=== PATIENT | female | born 1990 | race Caucasian/White ===

== ENCOUNTER 2020-06-20 18:03 | Inpatient (IN) | payer SELFPAY ==
[~2020-06-20 18:03] MED LIST: FLU VACC QS2020-21(6MOS UP)/PF 60 MCG/0.5 ML SYRINGE IM ONE; Iopamidol-370 76% 500 ML 1 ML ONE
[2020-06-20] MEDS ORDERED: Ketorolac Tromethamine 30 MG/ML VIAL ONE (18:29)
[2020-06-20] MEDS ORDERED: Morphine 4 MG/ML VIAL ONE ×2 (18:29→21:49)
[2020-06-20] MEDS ORDERED: Haloperidol Lactate 5 MG/ML VIAL ONE (18:29)
[2020-06-20] MEDS ORDERED: diphenhydrAMINE 50 MG/ML VIAL ONE (18:29)
[2020-06-20 18:50] LABS: #Eosinphils 0.1 thou/uL (0.0-0.7); #Lymphocytes 2.7 thou/uL (1.20-3.40); #Monocytes 0.5 thou/uL (0.11-0.59); #Neutrophils 5.9 thou/uL (1.40-6.50); %Basophils 0.5 % (0.0-1.0); %Eosinophils 0.8 % (0.0-10.0); %Lymphocytes 29.2 % (21.0-51.0); %Monocytes 5.3 % (0.0-10.0); %Neutrophils 64.1 % (42.0-75.0); Hemoglobin 14.1 g/dL (12.0-16.0); Mean Corpuscular HGB CONC 33.4 g/dL (32.0-36.0); Mean Corpuscular Hemoglobin 31.4 pg (27.0-31.0); Mean Platelet Volume 7.5 fL (7.4-10.4); Platelet Count 282 thou/uL (130-400); RBC Distribution Width 11.8 % (11.5-14.5); Red Blood Cell (RBC) Count 4.51 mill/uL (4.20-5.40); White Blood Cell (WBC) Count 9.2 thou/uL (4.8-10.8)
[2020-06-20 18:53] LABS: BHCG - Serum Negative (NEGATIVE); Pregs Control Background? CLEAR/WHITE (CLR/WHITE); Pregs Control Bar Appear? YES (CONTROL BAR)
[2020-06-20 19:15] LABS: ALT (SGPT) 11 U/L (8-55); AST (SGOT) 27 U/L (5-34); Albumin 3.6 g/dL (3.5-5.0); Alkaline Phosphatase 67 U/L (40-110); Anion Gap 16 mmol/L (10-20); BUN (Urea Nitrogen) 7 mg/dL (7.0-18.7); Bilirubin, Total 0.7 mg/dL (0.2-1.2); Calc. Creatinine Clearance 0 mL/min (70-130); Carbon Dioxide 24 mmol/L (22-29); Chloride 102 mmol/L (98-107); Globulin 3.7 g/dL (2.4-3.5); Glucose 139 mg/dL (70-105); Lipase 19 U/L (8-78); Magnesium 1.6 mg/dL (1.6-2.6); Protein, Total 7.3 g/dL (6.0-8.3); Sodium 137 mmol/L (136-145)
[2020-06-20 19:31] LABS: Bilirubin Negative (Negative); Blood, Urine Trace (Negative); Clarity Clear (Clear); Glucose, Urine (Dipstick) Normal (Negative); Ketone, Urine Negative (Negative); Leukocyte Negative Leu/uL (Negative); Nitrite 1+ (Negative); Protein, Urine (Dipstick) Negative (Neg-Trace); RBC/HPF 0-3 HPF (0-3); Specific Gravity, Urine 1.019 (1.002-1.036); Urobilinogen Normal mg/dL (Less than 2); WBC/HPF 0-3 HPF (0-3); pH, Urine 6.5 (5.0-9.0)
[2020-06-20 19:32] LABS: Bacteria/HPF 1+ HPF (None Seen); Pregnancy Test - Urine (BHCG) Negative (Negative); Pregu Control Background? CLEAR/WHITE (CLR/WHITE); Pregu Control Bar Appear? YES (CONTROL BAR); Specific Gravity 1.019 (1.002-1.036)
--- NOTE | 2020-06-20 19:36 | CT ---
CT ABDOMEN AND PELVIS WITH IV CONTRAST 06/20/2020 CLINICAL INFORMATION: Acute abdominal pain. Pain radiates to right lower quadrant. Nausea and vomiting. COMPARISON: None. Technique: Multiple contiguous axial CT images are obtained through the abdomen and pelvis with IV contrast. Cor onal reformatted images are provided. FINDINGS: Lower Chest: Minimal dependent bibasilar atelectasis is present. Vessels: Abdominal aorta is normal in caliber. Abdomen: Portal vein:Mildly prominent in diameter but patent. Gallbladder: Within normal limits for CT imaging. Liver: within normal limits. Spleen: within normal limits. Pancreas: within normal limits. Adrenals: within normal limits. Kidneys: within normal limits. Bowel: There is prominent gaseous distention of the majority of the colon with a moderate amount garret ined fecal material seen in the region of the ascending colon and involving the cecum. There is a focal area of swirling and narrowing involving the sigmoid colon in the left hemipelvis. Within the a amxine of narrowing, there are vessels extending through this region. Findings could potentially represent internal hernia in this location with subsequent narrowing, but a volvulus or incomplete vo lvulus of the sigmoid colon is a possibility. There is gas seen distal to this region. Loops of small bowel are normal in caliber. Appendix: The appendix is visualized and normal in caliber. Peritoneum: Minimal amount of free fluid is seen in the lower posterior pelvis. Mesentery and Retroperitoneum: No enlarged mesenteric or retroperitoneal lymph nodes. Abdominal Wall: Small infraumbilical fat-containing hernia. Pelvis: Reproductive Organs: Low density area in the right adnexa likely due to small cyst or dominant follic le in the right ovary. Bladder: Incompletely distended but otherwise normal in appearance. Bones: No suspicious lytic or sclerotic osseous lesions are identified. IMPRESSION: 1. Moderate amount retained fecal material in the region of the cecum and ascending colon with gaseou s distention of the majority of the colon. There is focal short segment of narrowing with a swirling type appearance involving the sigmoid colon. This may potentially represent on internal yaa ia, but possibility of a volvulus or incomplete volvulus of the sigmoid colon is a possibility. The cecum measures approximately 9.1 cm in transverse dimensions. 2. No CT evidence of appendicitis. 3. Above findings discussed Dr. Lombardi in the emergency department on 06/20/2020 at 1933 hours
[2020-06-20] MEDS ORDERED: Piperacillin/Tazobactam 3.375 GM VIAL ONE (20:34)
[2020-06-20] MEDS ORDERED: Dextrose 50% Abboject 50 ML SYRINGE SLOW IVP PRN (22:52)
[2020-06-20] MEDS ORDERED: hydrALAZINE 20 MG/ML VIAL SLOW IVP PRN (22:52)
[2020-06-20] MEDS ORDERED: Ketorolac Tromethamine 30 MG/ML VIAL IVP PRN (22:52)
[2020-06-20] MEDS ORDERED: Dextrose 5% in Water 1,000 ML IV PRN (22:52)
[2020-06-20 22:54] VITALS: BMI 30.1
[2020-06-20] MEDS ORDERED: Famotidine/PF 20 mg/2ml Vial SLOW IVP SCH (23:15)
[2020-06-21] MEDS: D5 1/2 NS w/20 mEq KCL 1,000 ML IV SCH ×3 (00:10→17:50)
[2020-06-21] MEDS: Promethazine HCl 25 MG/ML VIAL IM PRN (00:24)
[2020-06-21] MEDS: Morphine 2 MG/ML VIAL SLOW IVP PRN ×3 (00:29→21:16)
[2020-06-21] MEDS: Piperacillin/Tazobactam 3.375 GM in Sodium Chloride 0.9% 100 ML IVPB SCH ×4 (03:18→21:15)
[2020-06-21 04:28] LABS: SARS-CoV-2 MS2 Positive; SARS-CoV-2 N Gene Negative; SARS-CoV-2 S Gene Negative; SARS-CoV-2 by NAA Not Detected (NotDetected); SARS-CoV-2 orf1ab Negative
[2020-06-21 05:55] LABS: #Basophils 0.1 thou/uL (0.0-0.2); #Eosinphils 0.1 thou/uL (0.0-0.7); #Lymphocytes 3.2 thou/uL (1.20-3.40); #Monocytes 0.6 thou/uL (0.11-0.59); #Neutrophils 4.7 thou/uL (1.40-6.50); %Basophils 0.8 % (0.0-1.0); %Eosinophils 1.6 % (0.0-10.0); %Lymphocytes 37.2 % (21.0-51.0); %Monocytes 6.5 % (0.0-10.0); Hemoglobin 13.8 g/dL (12.0-16.0); Mean Corpuscular HGB CONC 33.2 g/dL (32.0-36.0); Mean Corpuscular Hemoglobin 31.1 pg (27.0-31.0); Mean Corpuscular Volume 93.9 fL (78.0-98.0); Mean Platelet Volume 7.3 fL (7.4-10.4); Platelet Count 276 thou/uL (130-400); Red Blood Cell (RBC) Count 4.43 mill/uL (4.20-5.40); White Blood Cell (WBC) Count 8.7 thou/uL (4.8-10.8)
[2020-06-21 06:16] LABS: Anion Gap 13 mmol/L (10-20); BUN (Urea Nitrogen) 8 mg/dL (7.0-18.7); Calc. Creatinine Clearance 158 mL/min (70-130); Calcium 8.3 mg/dL (7.8-10.44); Carbon Dioxide 25 mmol/L (22-29); Chloride 105 mmol/L (98-107); Glucose 97 mg/dL (70-105); Sodium 139 mmol/L (136-145)
[2020-06-21] MEDS ORDERED: FLU VACC QS2020-21(6MOS UP)/PF 60 MCG/0.5 ML SYRINGE IM ONE (09:00)
--- NOTE | 2020-06-21 09:04 | HP ---
CHIEF COMPLAINT: Abdominal bloating and pain. HISTORY OF PRESENT ILLNESS: This is a 29-year-old female who presents with a 2-day history of abdominal bloating associated with nausea, vomiting. The nausea and vomiting resolved. She was complaining of pain mostly in the lower abdomen that was crampy, seen in the emergency department where CAT scan reveals evidence of a twist in her sigmoid colon. This was thought to be either an internal hernia or may be a partial sigmoid volvulus. There was not complete twisting and "kinking" of the mesenteric vessels. She has not vomited overnight and has no nausea. She has mild pain. She has had previous tubal ligation. No other abdominal surgery. PAST MEDICAL HISTORY: She denies. SURGICAL HISTORY: Tubal ligation. MEDICATIONS: Taken daily, none. ALLERGIES: ZOFRAN. SOCIAL HISTORY: She smokes no alcohol. No other drugs. Ten-system review of systems is otherwise negative other than described above. PHYSICAL EXAMINATION: VITAL SIGNS: Blood pressure is 139/91, pulse 69, respirations 18, she is afebrile. HEENT: Sclerae anicteric, oropharynx clear. NECK: No lymphadenopathy. CHEST: Clear. HEART: Regular rate. ABDOMEN: Soft. It is distended diffusely, mildly tender without guarding or rebound. LABORATORY DATA: White blood cell count is 8.7, hemoglobin 13. Sodium 139, potassium 4.0, creatinine 0.67. COVID negative. CT scan shows evidence of obstruction at the rectosigmoid junction. ASSESSMENT: Strange, questionable obstruction in the sigmoid colon, could be a volvulus. PLAN: We will discuss with Dr. Peguero today whether he wants to do flexible sigmoidoscopy to further evaluate this area. Otherwise, she would be to the operating room; however, ideally, if this is a volvulus, she could be untwisted, prepped, and then undergo elective sigmoid resection. Job ID: [id number]
[2020-06-21] MEDS: Famotidine/PF 20 mg/2ml Vial SLOW IVP SCH ×2 (09:27→21:16)
[2020-06-21] MEDS: Famotidine 20 MG TAB PO SCH ×2 (09:28→21:15)
[2020-06-21] MEDS ORDERED: GoLYTELY 4,000 ml Bottle PO SCH (12:30)
[2020-06-21] MEDS: Morphine 4 MG/ML VIAL SLOW IVP PRN ×2 (12:50→17:50)
--- NOTE | 2020-06-21 13:29 | CON ---
DATE OF CONSULTATION: 06/21/2020 CHIEF COMPLAINT: Abdominal pain. HISTORY OF PRESENT ILLNESS: Ms. Ritchie is a 29-year-old woman, who started with left lower quadrant cramping abdominal pain 3 days ago. The pain has been constant and she did have an episode of nausea and vomiting originally, but that resolved. She last had a bowel movement 5 days ago. She has passed some gas from the rectum. She ate solid food last night around 6 p.m. However, the pain worsened and she came onto the emergency room last night. She has had no diarrhea or blood in the stool. Weight has been stable. No further vomiting since admission. She had a CT scan of the abdomen and pelvis last night, which showed a swirling or twisting of the sigmoid colon, concerning for possible volvulus or internal hernia. She has dilation of the colon with stool and air proximal to that. She is admitted to the General Surgery Service and GI was consulted. PAST MEDICAL HISTORY: Otherwise negative. PAST SURGICAL HISTORY: Tubal ligation. FAMILY HISTORY: Positive for stomach cancer in her grandmother. SOCIAL HISTORY: Last methamphetamine use was one week ago. She smokes cigarettes. No alcohol. ALLERGIES: ZOFRAN. CURRENT MEDICATIONS: None. REVIEW OF SYSTEMS: Negative x10 systems reviewed except as stated in the history of present illness. PHYSICAL EXAMINATION: VITAL SIGNS: Temperature 98.0, pulse 69, blood pressure 139/91. GENERAL: She is in no acute distress. Alert and oriented x3. HEENT: Eyes have no scleral icterus. Oropharynx is clear without lesions. No cervical or supraclavicular lymphadenopathy. LUNGS: Clear to auscultation bilaterally. HEART: Regular rate and rhythm without murmur. ABDOMEN: Soft. Mild tenderness in the left lower quadrant without guarding. Bowel sounds are present. EXTREMITIES: No lower extremity edema. NEUROLOGIC: Cranial nerves are grossly intact. LABORATORY DATA: White blood cell count 8.7, hemoglobin 13.8, and platelets 276. Creatinine 0.67, bilirubin 0.7, AST 27, ALT 11, alkaline phosphatase 67, albumin 3.6. IMPRESSION: Sigmoid volvulus versus less likely an internal hernia. Either way, this will likely require surgical repair. If surgery is required without a bowel prep, then she will require a colostomy. We will attempt to untwist a volvulus with flexible sigmoidoscopy first and if this is successful, then she could potentially take a bowel prep, then proceed with surgery after the bowel prep. If the endoscopy is unsuccessful to straighten her colon, then surgery will likely be necessary unprepped. RECOMMENDATIONS: Flexible sigmoidoscopy/colonoscopy today. Job ID: [id number]
--- NOTE | 2020-06-21 18:12 | OP ---
DATE OF PROCEDURE: 06/21/2020 PROCEDURE PERFORMED: Colonoscopy with snare polypectomy. PREOPERATIVE DIAGNOSIS: Sigmoid volvulus. DESCRIPTION OF PROCEDURE: Informed consent was obtained from the patient. She was sedated with total intravenous anesthesia. The exam was performed unprepped. The colonoscope was advanced to the distal ascending colon without difficulty. There was solid stool in the colon. The stool obscured views proximal to that point. Stool also obscured areas of the colon distal to that point. There was a slight twist at the rectosigmoid junction, but there was no mucosal ischemia or ulceration or inflammation in this area. There was not a significant abrupt caliber change in the bowel diameter. I removed an 8 mm sessile polyp from the sigmoid colon by snare cautery polypectomy. Retroflexed views in the rectum were unremarkable. The mucosa otherwise in the colon appeared normal. Again, significant areas of the colon were not seen due to bowel prep and the scope could only be advanced to the distal ascending versus proximal transverse due to solid stool in the colon, which was unprepped. RECOMMENDATIONS: 1. We will follow through with bowel prep later today. 2. Await histopathology. 3. Repeat colonoscopy will be required in the future if the polyp is confirmed to be adenomatous or villous or serrated. 4. Given that there is not an obvious acute volvulus or internal hernia, decision regarding surgery will be based on her clinical course. We will see how she tolerates the bowel prep. Job ID: [id number]
[2020-06-22] MEDS: Piperacillin/Tazobactam 3.375 GM in Sodium Chloride 0.9% 100 ML IVPB SCH ×2 (02:38→07:40)
[2020-06-22] MEDS: Morphine 2 MG/ML VIAL SLOW IVP PRN ×5 (02:52→18:51)
[2020-06-22] MEDS: D5 1/2 NS w/20 mEq KCL 1,000 ML IV SCH ×2 (05:27→07:46)
[2020-06-22] MEDS: Famotidine/PF 20 mg/2ml Vial SLOW IVP SCH ×2 (07:40→20:41)
[2020-06-22] MEDS: Famotidine 20 MG TAB PO SCH ×2 (07:41→20:38)
[2020-06-22] MEDS ORDERED: D5 1/2 NS w/20 mEq KCL 1,000 ML IV SCH (08:26)
--- NOTE | 2020-06-22 08:34 | PRG ---
DATE OF SERVICE: SUBJECTIVE: Ms. Ritchie has no complaints. She had multiple liquid stools overnight. She is hungry today. No abdominal pain. PHYSICAL EXAMINATION: VITAL SIGNS: She is afebrile. Vital signs are stable. ABDOMEN: Soft, minimally distended, nontender. ASSESSMENT: Question of internal hernia versus sigmoid volvulus, although colonoscopy findings not associate financial representative of that. Tolerated the prep without difficulty. PLAN: Try regular diet if she tolerates at home tomorrow. We will follow her closely in the outpatient setting as well to make sure this does not recur. I suspect I will be ready to send her home tomorrow. Job ID: [id number]
--- NOTE | 2020-06-22 14:40 | PRG ---
DATE OF SERVICE: 06/22/2020 SUBJECTIVE: Ms. Ritchie still complains of pain more so on the right lower quadrant now that has been pretty continuous over the last few days. She did not have pain prior to that. She tolerated the GoLYTELY well and has now had a CR[employer]AN[employer]WICH from [employer], but has had some increase in her abdominal pain with the meal. PHYSICAL EXAMINATION: VITAL SIGNS: Temperature 97.8, pulse 78, and blood pressure 122/91. GENERAL: She is in no acute distress. Alert and oriented x3. LUNGS: Clear to auscultation bilaterally. HEART: Regular rate and rhythm without murmur. ABDOMEN: Soft. She has tenderness in the right lower quadrant without guarding. Bowel sounds are present. EXTREMITIES: No lower extremity edema. LABORATORY DATA: White blood cell count 8.7 yesterday. IMPRESSION: Right lower quadrant and left lower quadrant abdominal pain with a question of a twist in the sigmoid colon by CT scan. However, colonoscopy did not reveal significant abnormalities yesterday. Her right colon could not be visualized due to solid stool with an un-prepped exam. She did use methamphetamines within a week ago of onset of her symptoms and ischemic origin could be considered; however, no ischemic changes were present within reach of what I could see with the scope yesterday. RECOMMENDATIONS: 1. Plan at this point is to continue her diet that she tolerates and as long as she continues to tolerate this, then we will manage conservatively. 2. Follow up colonoscopy will be required in the future to evaluate the right colon in light of the colon polyps removed, pending path. Job ID: [id number] [facility]
[2020-06-22] MEDS ORDERED: traMADol HCl 50 MG TAB PO PRN (19:55)
[2020-06-23] MEDS: traMADol HCl 50 MG TAB PO PRN ×2 (03:28→19:10)
--- NOTE | 2020-06-23 08:55 | PDOC.GSPN ---
Surgery Progress Note: Subj - Subjective Patient reports: still having pain, tolerating a regular diet Narrative: Overnight, Ms. Ritchie reports significant abdominal pain. The pain is mostly located in her RLQ and there is mild pain in the LLQ. She rated her pain as an 8/10. Because of her pain, she discussed how she felt hesitant to go home as her abdominal pain has never completely gone away. She received tramadol at 3 a.m. for the pain, but this did not help her much. She reports no bowel movement and has not passed gas today. No vomiting. She has tolerated solid foods, but reports little appetite. Reported some mild nausea last night. Surgery Progress Note: Obj - Vital signs Vital signs: Vital Signs - Most Recent Temp Pulse Resp BP Pulse Ox 97.6 F 72 18 116/84 97 06/23/20 08:00 06/23/20 08:00 06/23/20 08:00 06/23/20 08:00 06/23/20 08:00 - Physical Exam General: moderate pain Cardiovascular: regular rate and rhythm Respiratory: clear to auscultation, breath sounds present Abdomen: decreased bowel sounds, guarding (mild), tender Psychiatric: oriented to time, oriented to person, oriented to place Surgery Progress Note: Results - Labs Result Diagrams: 06/21/20 05:28 06/21/20 05:28 Surgery Progress Note: A/P - Problem (1) Abdominal pain Current Visit: Yes Code(s): R10.9 - UNSPECIFIED ABDOMINAL PAIN Status: Acute Qualifiers: Abdominal location: right lower quadrant Qualified Code(s): R10.31 - Right lower quadrant pain - Plan Plan: Will have her continue solid foods and further see how she tolerates it. Also encouraged her to get up and move around. She was hesitant when we discussed potentially discharging her due to her abdominal pain. Will reassess her pain and see if it is better controlled.
[2020-06-23] MEDS: Morphine 4 MG/ML VIAL SLOW IVP PRN (08:57)
[2020-06-23] MEDS: Famotidine 20 MG TAB PO SCH ×2 (08:57→19:10)
[2020-06-23] MEDS: Famotidine/PF 20 mg/2ml Vial SLOW IVP SCH ×2 (09:01→19:23)
[2020-06-23] MEDS ORDERED: Polyethylene Glycol 3350 17 GM Packet PO SCH (10:00)
[2020-06-23] MEDS ORDERED: Acetaminophen 500 MG TAB PO PRN (10:27)
--- NOTE | 2020-06-23 11:02 | PRG ---
DATE OF SERVICE: 06/23/2020 SUBJECTIVE: Ms. Ritchie complains of right lower quadrant abdominal pain, which is still persisted, requiring morphine. She ate [employer] for lunch yesterday. She ate solid food with fibrous vegetables last night for supper. She has no nausea or vomiting. OBJECTIVE: VITAL SIGNS: Temperature is 97.6, pulse 72, and blood pressure 116/84. GENERAL: She is in no acute distress. Alert and oriented x3. LUNGS: Clear to auscultation bilaterally. HEART: Regular rate and rhythm without murmur. ABDOMEN: Soft, tender in the right lower quadrant, but there is no guarding. Her bowel sounds are present. EXTREMITIES: No lower extremity edema. IMPRESSION: 1. Right lower quadrant pain. She had gone several days without a bowel movement prior to admission, but did have several bowel movements with bowel prep two days ago. Her pain has continued, however. Her unprepped colonoscopy was unremarkable to the distal ascending/proximal transverse. No inflammatory changes were noted by CT scan in the right lower quadrant. There is a question of volvulus; however, she has no obstruction, and the colonoscope could pass through the sigmoid without difficulty. This likely is more of a functional type pain at this point, however, this is just new onset over the last few days. 2. Colon polyp removed. RECOMMENDATIONS: 1. Await histopathology from the colon polyp removed. If this is an adenoma or villous polyp or serrated polyp, then followup colonoscopy should be performed to evaluate the right colon and the remainder of the colon as that procedure was unprepped. That can be done as an outpatient. 2. She was positive for methamphetamine on presentation, and ischemia of the right colon could be considered, but there are no changes of the mucosa to suggest this in the colon that was visualized. 3. Start tapering down the morphine and transition to oral Tylenol instead. 4. Start MiraLAX daily. 5. Repeat colonoscopy in the next month if the colon polyp is neoplastic. 6. If she continues to tolerate her regular diet and is able to taper down her opioid pain medicine, then she should be ready to discharge home soon. Job ID: [id number]
--- NOTE | 2020-06-23 13:20 | PRG ---
DATE OF SERVICE: 06/23/2020 SUBJECTIVE: Ms. Ritchie still having some pain in her right side. No nausea, vomiting with regular food. OBJECTIVE: ABDOMEN: She is soft, minimally tender in the right abdomen. No guarding or rebound. No diffuse peritoneal signs. LABORATORY DATA: No new labs today. ASSESSMENT: Abdominal pain of uncertain etiology. There was a question of sigmoid volvulus, but there was no volvulus found at colonoscopy. Her right colon is not able to be seen secondary to no prep. PLAN: I suspect her pain will resolve. If not, she will need completion colonoscopy versus repeat CT. Job ID: [id number]
[2020-06-23] MEDS: Morphine 2 MG/ML VIAL SLOW IVP PRN ×3 (16:27→20:23)
[2020-06-23] MEDS: Promethazine HCl 25 MG/ML VIAL IM PRN (19:13)
[2020-06-24] MEDS: Famotidine/PF 20 mg/2ml Vial SLOW IVP SCH ×2 (08:22→21:29)
[2020-06-24] MEDS: Polyethylene Glycol 3350 17 GM Packet PO SCH (08:23)
[2020-06-24] MEDS: Famotidine 20 MG TAB PO SCH ×2 (08:23→21:28)
[2020-06-24] MEDS: Morphine 2 MG/ML VIAL SLOW IVP PRN (08:23)
[2020-06-24] MEDS ORDERED: Milk Of Magnesia 30 ML UDCUP PO PRN (10:06)
[2020-06-24] MEDS: traMADol HCl 50 MG TAB PO PRN ×2 (10:07→16:04)
--- NOTE | 2020-06-24 10:27 | PRG ---
DATE OF SERVICE: 06/24/2020 SUBJECTIVE: Ms. Ritchie is a complaining of mild pain. She is tolerating a regular diet. She is concerned because she has not had a bowel movement a few days. PHYSICAL EXAMINATION: VITAL SIGNS: She is afebrile and her vital signs are stable. ABDOMEN: Very soft, minimally tender in the right with deep palpation, but no distention. Active bowel sounds. ASSESSMENT: Abdominal distention with question of sigmoid volvulus on initial CT, but no evidence of that on colonoscopy, retained stool in right colon, now cleaned out with GoLYTELY. PLAN: We are going to discontinue all other pain medicine except for the tramadol and the Tylenol. She is tolerating regular diet. Her belly is soft. She has no nausea. She could have some mild ischemia to the right colon, although she is hemodynamically stable and shows no signs of toxicity. Plan is milk of magnesium later on today if does not have a bowel movement. Probably home tomorrow. Job ID: [id number]
[2020-06-24] MEDS: Promethazine HCl 25 MG/ML VIAL IM PRN (12:40)
--- NOTE | 2020-06-24 16:57 | PRG ---
DATE OF SERVICE: 06/24/2020 REASON FOR CONSULTATION: Right lower quadrant abdominal pain, possible colonic volvulus on imaging. SUBJECTIVE: The patient states that she ate a salad last night due to concerns that she needed to have a bowel movement with ingestion of an increased fiber diet. She still has not had a bowel movement, but states that her pain is relatively unchanged when compared to previous. She currently rates her pain at approximately 6 to 7/10. She notes that the pain has not increased with consumption of any food stuffs, however. She does continue to require pain medications, but is slowly weaning off the narcotics. Otherwise, she denies any nausea, vomiting, fevers, chills, hematemesis, melena, or hematochezia. OBJECTIVE: VITAL SIGNS: Temperature 97.3, pulse 67, blood pressure 122/86, respiratory rate 16, and saturating 98% on room air. GENERAL: The patient was lying in bed, in no acute distress. Alert and oriented x4. CARDIOVASCULAR: Regular rate and rhythm. RESPIRATORY: Clear to auscultation bilaterally. ABDOMEN: Normoactive bowel sounds. Soft, nondistended. Tenderness to palpation in the right mid and right lower quadrant. However, I could not reproduce this pain upon distraction. EXTREMITIES: No cyanosis, clubbing, or edema. LABORATORY DATA: No current studies are available for review. IMAGING DATA: No current imaging is available for review. However, polypectomy results from the sigmoid colon polyp removed on June 21, 2020, favors a diagnosis of an 8-mm tubular adenoma. ASSESSMENT AND PLAN: 1. Right lower quadrant abdominal pain. The patient initially presented with possible volvulus with unprepped colonoscopy not indicative of this particular finding. Visualization of the right colon was not achieved due to significant amount of retained stool. However, there were no inflammatory or ischemic type changes seen during that examination. Her right lower quadrant abdominal pain seems to be improving, but it is unclear if this is connected to drug-seeking behavior given the fact that I could not reproduce her pain with distraction. 2. Adenomatous polyp of the sigmoid colon. RECOMMENDATIONS: 1. Pain control per Primary Team, but would attempt to minimize any narcotics. 2. Continue MiraLAX daily and to facilitate having a bowel movement, which could potentially generate her right lower quadrant abdominal pain. 3. Strongly encourage the patient to avoid any methamphetamine in the future as it could potentially generate abdominal pain and/or ischemia. 4. Given the adenomatous nature of the sigmoid colon polyp, I would recommend a repeat colonoscopy within the next 3 to 6 months for adequate visualization of the right colon. However, this can be performed as an outpatient. We will sign off at this time given the improved abdominal pain and relatively benign findings on colonoscopy. We would have the patient follow up in the GI Clinic in 2 to 3 weeks and repeat the colonoscopy in 3 to 6 months. Please call with any questions. Job ID: [id number]
[2020-06-25] MEDS: Famotidine 20 MG TAB PO SCH (08:58)
[2020-06-25] MEDS: Polyethylene Glycol 3350 17 GM Packet PO SCH (08:58)
[2020-06-25] MEDS: traMADol HCl 50 MG TAB PO PRN (08:58)
[2020-06-25] MEDS: Famotidine/PF 20 mg/2ml Vial SLOW IVP SCH (08:59)
[2020-06-25 11:17] VITALS: BP 111/77; TEMP 97.8
--- NOTE | 2020-06-25 13:52 | PRG ---
DATE OF SERVICE: 06/25/2020 SUBJECTIVE: Ms. Ritchie has no abdominal pain. She is tolerating diet. She has not had a bowel movement since she did GoLYTELY, but she denies pain. She is passing gas. OBJECTIVE: VITAL SIGNS: Temperature is 97, pulse 85, blood pressure 111/77. ABDOMEN: Soft, nontender. There is no palpable hepatosplenomegaly. EXTREMITIES: No clubbing, cyanosis, or edema. ASSESSMENT: Constipation with questionable volvulus on admission. Colonoscopy showed no volvulus, status post bowel prep to clean out her colon, now benign abdomen. RECOMMENDATION: 1. Advance diet. Discharge home today. She can use MiraLAX daily for constipation. 2. She did have a small polyp. So need to follow up with Dr. Peguero for followup colonoscopy at a later date. Job ID: [id number]
--- NOTE | 2020-06-25 14:02 | DIS ---
DATE OF ADMISSION: 06/20/2020 DATE OF DISCHARGE: 06/25/2020 ADMIT DIAGNOSIS: Abdominal pain, rule out sigmoid volvulus. DISCHARGE DIAGNOSIS: Abdominal pain, rule out sigmoid volvulus. PROCEDURES: Colonoscopy by Dr. Peguero without complication, showing single benign polyp and no obvious sigmoid volvulus. HOSPITAL COURSE: The patient was admitted with CT scan showing possible sigmoid volvulus. She underwent colonoscopy which revealed no obvious twist or sequelae of sigmoid volvulus. She then had a full prep and she felt better. Her pain is now improved. She has mild pain in the right abdomen. She is being discharged home. She will follow up with me in the office in 3 to 4 weeks. GI recommended a completion colonoscopy since her right colon could not be visualized properly. My office can arrange for that at a later date. Job ID: [id number]
== END 2020-06-25 15:00 | disposition home or self-care (01) | DRG 392 ==
LOC: ERS 18:03 → SURG A 20:35
PROVIDERS: ADMIT Surgery; ATTEND Surgery
PROC: 0DBN8ZZ Excision of Sigmoid Colon, Via Natural or Artificial Opening Endoscopic (ICD-10-PCS; principal; 2020-06-21)
DX: R10.31 Right lower quadrant pain (principal); K59.00 Constipation, unspecified; D12.5 Benign neoplasm of sigmoid colon; Z20.822 Contact with and (suspected) exposure to COVID-19; F41.9 Anxiety disorder, unspecified; F32.9 Major depressive disorder, single episode, unspecified; F17.210 Nicotine dependence, cigarettes, uncomplicated; F15.10 Other stimulant abuse, uncomplicated; Z98.51 Tubal ligation status; Z88.8 Allergy status to other drugs, medicaments and biological substances
CPT/HCPCS: 36415; 74177; 80048; 80053; 81003; 81015; 81025; 83690; 83735; 84703; 85025; 87635; 88305; 96365; 96375; 96376; J1200; J1630; J1885; J2270; J2543; J2550; J3480; J3490; Q9967; S0028; U0003

== ENCOUNTER 2020-07-05 10:56 | Emergency (ER) | payer SELFPAY ==
[2020-07-05] MEDS ORDERED: Acetaminophen 325 MG TAB ONE (11:34)
--- NOTE | 2020-07-05 11:34 | RAD ---
EXAM: XR Abdomen 1 View/KUB PROVIDED CLINICAL HISTORY: Abdominal pain for one week. COMPARISON: None FINDINGS: Bowel gas pattern is nonspecific with small to moderate amount retained fecal material seen throughou t the colon. A few calcifications are seen overlying the pelvis likely attributable to phleboliths. There are 2 radiopaque tubular structures overlying the right pelvis which could be related to overly ing artifact, but clinical correlation is recommended. Osseous structures have a normal appearance. IMPRESSION: 1. Radiopaque tubular structures overlying the right pelvis. Findings could be related to overlying a rtifact, but clinical correlation is recommended. 2. Nonspecific bowel gas pattern with small to moderate amount retained fecal material seen throughou t the colon suggesting constipation.
[2020-07-05 12:12] LABS: #Basophils 0.1 thou/uL (0.0-0.2); #Eosinphils 0.1 thou/uL (0.0-0.7); #Lymphocytes 3.1 thou/uL (1.20-3.40); #Monocytes 0.5 thou/uL (0.11-0.59); #Neutrophils 6.9 thou/uL (1.40-6.50); %Basophils 0.8 % (0.0-1.0); %Eosinophils 1.1 % (0.0-10.0); %Lymphocytes 28.9 % (21.0-51.0); %Monocytes 4.7 % (0.0-10.0); %Neutrophils 64.6 % (42.0-75.0); BHCG - Serum Negative (NEGATIVE); Hemoglobin 14.4 g/dL (12.0-16.0); Mean Corpuscular HGB CONC 34.7 g/dL (32.0-36.0); Mean Corpuscular Hemoglobin 32.8 pg (27.0-31.0); Mean Corpuscular Volume 94.5 fL (78.0-98.0); Mean Platelet Volume 7.7 fL (7.4-10.4); Platelet Count 288 thou/uL (130-400); Pregs Control Background? CLEAR/WHITE (CLR/WHITE); Pregs Control Bar Appear? YES (CONTROL BAR); Red Blood Cell (RBC) Count 4.39 mill/uL (4.20-5.40); White Blood Cell (WBC) Count 10.6 thou/uL (4.8-10.8)
[2020-07-05 12:19] LABS: ALT (SGPT) 8 U/L (8-55); AST (SGOT) 13 U/L (5-34); Albumin 3.7 g/dL (3.5-5.0); Alkaline Phosphatase 72 U/L (40-110); Anion Gap 14 mmol/L (10-20); BUN (Urea Nitrogen) 13 mg/dL (7.0-18.7); Bilirubin, Total 0.4 mg/dL (0.2-1.2); Calc. Creatinine Clearance 0 mL/min (70-130); Calcium 8.7 mg/dL (7.8-10.44); Carbon Dioxide 29 mmol/L (22-29); Chloride 102 mmol/L (98-107); Globulin 3.1 g/dL (2.4-3.5); Glucose 99 mg/dL (70-105); Potassium 4.6 mmol/L (3.5-5.1); Protein, Total 6.8 g/dL (6.0-8.3); Sodium 140 mmol/L (136-145)
[2020-07-05] MEDS ORDERED: GoLYTELY 4,000 ml Bottle PO SCH (12:30)
[2020-07-05 12:45] LABS: Bacteria/HPF None Seen HPF (None Seen); Bilirubin Negative (Negative); Blood, Urine Negative (Negative); Clarity Clear (Clear); Glucose, Urine (Dipstick) Normal (Negative); Ketone, Urine Negative (Negative); Leukocyte 25 Leu/uL (Negative); Nitrite Negative (Negative); Protein, Urine (Dipstick) Negative (Neg-Trace); RBC/HPF 0-3 HPF (0-3); Specific Gravity, Urine 1.019 (1.002-1.036); Urobilinogen Normal mg/dL (Less than 2); WBC/HPF 0-3 HPF (0-3)
== END 2020-07-05 12:40 | disposition home or self-care (01) ==
LOC: ERS 10:56
DX: K59.00 Constipation, unspecified (principal); F17.290 Nicotine dependence, other tobacco product, uncomplicated
CPT/HCPCS: 36415; 74018; 80053; 81003; 81015; 84703; 85025

== ENCOUNTER 2020-07-09 13:11 | Emergency (ER) | payer SELFPAY ==
--- NOTE | 2020-07-09 14:20 | RAD ---
KUB INDICATION: Abdominal pain with lack of bowel movements COMPARISON: July 05, 2020 FINDINGS: Bowel gas: Nonspecific but without overt appearance of obstruction. Lung bases: Excluded Additional findings: Radiopaque foreign bodies are not definitely seen overlying the right inguinal r egion as on the prior. Small phleboliths within the lower left hemipelvis is stable. No suspicious calcification is seen overlying the renal shadows or renal collecting systems. Osseous structures: No acute osseous abnormality is demonstrated. IMPRESSION: 1. No acute abnormality.
== END 2020-07-09 14:59 | disposition home or self-care (01) ==
LOC: ERS 13:11
DX: K59.00 Constipation, unspecified (principal); F17.210 Nicotine dependence, cigarettes, uncomplicated
CPT/HCPCS: 74018

== ENCOUNTER 2020-07-12 20:00 | Emergency (ER) | payer SELFPAY ==
[2020-07-12] MEDS ORDERED: Naproxen 500 MG TAB ONE (20:37)
[2020-07-12] MEDS ORDERED: Bacitracin 1 PK ONE (20:37)
== END 2020-07-12 21:33 | disposition home or self-care (01) ==
LOC: ERS 20:00
DX: L02.214 Cutaneous abscess of groin (principal); F17.290 Nicotine dependence, other tobacco product, uncomplicated; F17.210 Nicotine dependence, cigarettes, uncomplicated
CPT/HCPCS: 10060

== ENCOUNTER 2020-07-23 12:53 | Emergency (ER) | payer SELFPAY ==
--- NOTE | 2020-07-23 14:14 | RAD ---
KUB AND UPRIGHT AND PA CHEST: Date: 07/23/2020 HISTORY: Abdominal pain and constipation. FINDINGS: KUB AND UPRIGHT: The bowel gas pattern is nonobstructed. No free air. There is a mild amount of stool throughout the c olon. No renal calculi seen. Minimal scoliotic change in the spine. PA CHEST: Heart size and mediastinum are within normal limits. Lungs are clear of infiltrates. IMPRESSION: No acute findings. POS: VEDA
[2020-07-23] MEDS ORDERED: Glycerin Adult Supp. (12 ct jar) RC SCH (14:15)
[2020-07-23] MEDS ORDERED: Magnesium Citrate 300 ML BOT PO SCH (14:15)
[2020-07-23] MEDS ORDERED: Magnesium Citrate 300 ML BOT ONE (14:47)
== END 2020-07-23 15:31 | disposition home or self-care (01) ==
LOC: ERS 12:53
DX: K59.00 Constipation, unspecified (principal); F17.210 Nicotine dependence, cigarettes, uncomplicated; Z79.899 Other long term (current) drug therapy
CPT/HCPCS: 74022

== ENCOUNTER 2020-08-31 19:19 | Emergency (ER) | payer SELFPAY ==
[2020-08-31] MEDS ORDERED: Ketorolac Tromethamine 30 MG/ML VIAL ONE (20:48)
== END 2020-08-31 21:05 | disposition home or self-care (01) ==
LOC: ERS 19:19
DX: N61.0 Mastitis without abscess (principal); F17.290 Nicotine dependence, other tobacco product, uncomplicated
CPT/HCPCS: 96372; 99282; J1885

== ENCOUNTER 2020-09-02 10:23 | Emergency (ER) | payer SELFPAY ==
[2020-09-02] MEDS ORDERED: Sulfameth/Trimethoprim DS 800-160mg TAB ONE (11:55)
[2020-09-02] MEDS ORDERED: Cephalexin 250 MG CAP ONE (11:55)
[2020-09-02] MEDS ORDERED: Fentanyl 100 MCG/2 ML VIAL ONE ×2 (12:00→13:20)
[2020-09-02] MEDS ORDERED: Lidocaine 1% (PF) 30 ML VIAL ONE (12:00)
[2020-09-02] MEDS ORDERED: Midazolam HCl 2 mg/2 ml Vial ONE (13:27)
== END 2020-09-02 14:25 | disposition home or self-care (01) ==
LOC: ERS 10:23
DX: N61.1 Abscess of the breast and nipple (principal); F17.290 Nicotine dependence, other tobacco product, uncomplicated
CPT/HCPCS: 10060; 87070; 87205; 96372; 96374; 96375; J2001; J2250; J3010